=== PATIENT | female | born 1950 | race Caucasian/White ===

== ENCOUNTER 2020-07-16 10:02 | Day surgery (SDC) | payer MEDICARE, SELFPAY ==
[2020-06-06 08:45] VITALS: BMI 43.6
--- NOTE | 2020-06-07 07:52 | MHC.SHP ---
Pre-Procedural Eval Section A The patient is an INPATIENT: No The History & Physical has been completed within 30 days and I have reviewed it.: Yes Section B Chief Complaint: Cataract Right Eye Allergies: Allergies Allergy/AdvReac Type Severity Reaction Status Date / Time adhesive tape Allergy Blister Verified 06/06/20 08:52 Plan Diagnosis/Plan: Unchanged Patient has been examined and remains a candidate for the planned procedure
--- NOTE | 2020-06-08 09:19 | P.CONAN_ITS ---
HPI - Anesthesia Eval Consult details Narrative: 70yo F for cataract PCP cleared [facility] Past Medical History Medical History Depression Elevated cholesterol HTN (hypertension) Sleep apnea Surgical History Surgical History H/O colonoscopy History of Hx of arthroscopic knee surgery Hx of laparoscopy Social History Social History Smoking Status: Former smoker Smoked in Last 30 Days: No Smoking Quit Date: age 22 Use of substances other than those prescribed or required for medical reasons: No Advance Directives Information Provided: No Recently lost weight without trying: No Meds Allergies Allergy/AdvReac Type Severity Reaction Status Date / Time adhesive tape Allergy Blister Verified 06/06/20 08:52 Home Medications Medication Instructions Recorded Confirmed Type hydrochlorothiazide 1 tab PO DAILY 06/06/20 06/06/20 History paroxetine HCl 1 tab PO DAILY 06/06/20 06/06/20 History simvastatin 1 tab PO BEDTIME 06/06/20 06/06/20 History Exam Exam Date and Time: June 08, [id number] Height,Weight and Vital Signs: Height 5 ft 4 in Weight 115.212 kg Assessment and Plan Assessment Anesthesia Assessment: Chart Reviewed
--- NOTE | 2020-07-09 14:38 | HO.ANESPROP2 ---
Documented by User: Nadya Schumacher 07/09/20 14:39 HPI - Anesthesia Eval Consult details Narrative: 70yo F for Cataract Extraction No prev cataract [facility] Past Medical History Medical History Depression Elevated cholesterol HTN (hypertension) Sleep apnea Surgical History Surgical History H/O colonoscopy History of Hx of arthroscopic knee surgery Hx of laparoscopy Social History Social History Smoking Status: Former smoker Smoked in Last 30 Days: No Smoking Quit Date: Use of substances other than those prescribed or required for medical reasons: No Advance Directives Information Provided: No Recently lost weight without trying: No Meds Allergies Allergy/AdvReac Type Severity Reaction Status Date / Time adhesive tape Allergy Blister Verified 06/06/20 08:52 Home Medications Medication Instructions Recorded Confirmed Type hydrochlorothiazide 1 tab PO DAILY 06/06/20 06/06/20 History paroxetine HCl 1 tab PO DAILY 06/06/20 06/06/20 History simvastatin 1 tab PO BEDTIME 06/06/20 06/06/20 History Exam Exam Date and Time: July 09, 2020 1438 Height,Weight and Vital Signs: Height 5 ft 4 in Weight 115.212 kg Assessment and Plan Assessment Anesthesia Assessment: Chart Reviewed Documented by User: Beth Arroyo 07/16/20 10:41 [facility] Past Medical History Medical History Depression Elevated cholesterol HTN (hypertension) Sleep apnea Surgical History Surgical History H/O colonoscopy History of Hx of arthroscopic knee surgery Hx of laparoscopy Social History Social History Smoking Status: Former smoker Smoked in Last 30 Days: No Smoking Quit Date: Use of substances other than those prescribed or required for medical reasons: No Advance Directives Information Provided: No Recently lost weight without trying: No Meds Allergies Allergy/AdvReac Type Severity Reaction Status Date / Time adhesive tape Allergy Blister Verified 06/06/20 08:52 Home Medications Medication Instructions Recorded Confirmed Type hydrochlorothiazide 1 tab PO DAILY 06/06/20 06/06/20 History paroxetine HCl 1 tab PO DAILY 06/06/20 06/06/20 History simvastatin 1 tab PO BEDTIME 06/06/20 06/06/20 History Exam Airway Mallampati Class: III TM Dist: >3cm Neck ROM: Full Heart: RRR Lungs: CTA Assessment and Plan Assessment Anesthesia Assessment: Anesthesia Plan Discussed and Chart Reviewed Final Anesthetic Review NPO: Yes ASA Class: II Final Preanesthetic Review: Meds/Allgs Chart Reviewed, Consent Obtained/Reviewed and Anes Risks/Benef Reviewed Patient Risk: Low Procedure Risk: Low Anesthetic Plan Anesthetic Plan: MAC: Disposition: Standard PACU
[2020-07-09 15:00] VITALS: BMI 43.6
[2020-07-16 10:14] VITALS: BP 132/72; PULSE 65; RESP 20; TEMP 36.8; O2SAT 96
[2020-07-16] MEDS: Tetracaine HCl/PF 0.5% Oph Sol 4 ML DROPS 1 DROP EYE-RIGHT (10:35)
[2020-07-16] MEDS: Tropicamide 1 % Ophth Sol 3 ML BTL 1 DROP EYE-RIGHT ×3 (10:36→10:44)
[2020-07-16] MEDS: Lactated Ringers 500 ML 50 ML IV (10:38)
[2020-07-16 12:02] VITALS: BP 137/65; PULSE 55; RESP 18; TEMP 36.6; O2SAT 99
--- NOTE | 2020-07-16 12:02 | HO.PNOPHT ---
Ophthalmology Procedure Procedure Date of Service: 07/16/20 Ophthalmology Viscoelastic: Healrachael Duet Dual Pack Pro Ophthalmology Lenses: TECBRODY [id number] (14) Procedure Notes: PREOPERATIVE DIAGNOSIS: Decreased visual acuity right eye secondary to cataract POSTOPERATIVE DIAGNOSIS: Same PROCEDURE: Right cataract extraction with intraocular lens insertion SURGEON: Moreno Wheeler M.D. ANESTHESIA: Topical/MAC ESTIMATED BLOOD LOSS: None COMPLICATIONS: None After obtaining informed consent, the patient was brought to the operating room suite and placed in the supine position. After adequate sedation per anesthesia, topical drops of Tetracaine were given to the right eye. The eye was then prepped and draped in the usual sterile fashion. The operating room microscope was then positioned over the operative eye and a lid speculum placed. A paracentesis was created. Viscoelastic was then instilled into the anterior chamber. A three plane incision was then created temporally, utilizing a 2.85 mm keratome. Capsulotomy forceps were then utilized to create a circular tear capsulotomy. Hydrodissection and hydrodelineation were carried out until adequate mobilization of the nucleus occurred. Phacoemulsification was then utilized to remove the dense central nucleus followed by removal of the cortical material utilizing the automated aspiration irrigation unit. Viscoelastic was instilled into the posterior capsular bag followed by placement of a posterior chamber intraocular lens without difficulty. The residual Viscoelastic was then removed utilizing the automated IA machine. The wound was checked and found to be watertight. The patient tolerated the procedure well and the lid speculum was removed. Intracameral injection of Vigamox 0.1 mL followed by a subtenon injection of Kenalog-40 0.2 mL were administered. The patient will be seen in the a.m.
== END 2020-07-16 12:25 | disposition home or self-care (01) ==
PROVIDERS: PCP Internal Medicine; Visit Provider Ophthalmology
PROC: (CPT 66985; principal; 2020-07-16 12:50)
DX: H25.11 Age-related nuclear cataract, right eye (principal); I10 Essential (primary) hypertension
CPT/HCPCS: 66984; J2250; J3010; J3300; V2632

== ENCOUNTER 2021-01-21 14:50 | Outpatient (REF) | payer MEDICARE, SELFPAY ==
[2021-01-21 14:57] VITALS: BMI 44.6
== END 2021-01-21 14:51 | disposition home or self-care (01) ==
LOC: HO.MS 14:50
PROVIDERS: PCP Internal Medicine; Visit Provider Ophthalmology
PROC: (CPT 66821; principal; 2021-01-21 15:40)
DX: H26.491 Other secondary cataract, right eye (principal); Z96.1 Presence of intraocular lens; Z83.511 Family history of glaucoma; I10 Essential (primary) hypertension; Z87.891 Personal history of nicotine dependence; Z79.899 Other long term (current) drug therapy
CPT/HCPCS: 66821

== ENCOUNTER 2022-01-22 08:17 | Outpatient (REF) | payer MEDICARE, SELFPAY ==
--- NOTE | ~2022-01-22 | XR_ITS ---
EXAMINATION: PELVIS AND RIGHT HIP X-RAY CLINICAL INFORMATION: Pain COMPARISON: None TECHNIQUE: 2 views of the right hip and one view of the pelvis FINDINGS: No fracture or dislocation. There is joint space narrowing of the right hip joint. No erosive change or osteophyte formation is seen. The left hip joint is normal appearing. Bones of the pelvis are normal. Soft tissues are normal. XR/XR pelvis 1-2V IMPRESSION: Right hip joint space narrowing.
--- NOTE | ~2022-01-22 | XR_ITS ---
EXAMINATION: PELVIS AND RIGHT HIP X-RAY CLINICAL INFORMATION: Pain COMPARISON: None TECHNIQUE: 2 views of the right hip and one view of the pelvis FINDINGS: No fracture or dislocation. There is joint space narrowing of the right hip joint. No erosive change or osteophyte formation is seen. The left hip joint is normal appearing. Bones of the pelvis are normal. Soft tissues are normal. XR/XR hip RT min 2V IMPRESSION: Right hip joint space narrowing.
== END 2022-01-22 08:18 | disposition home or self-care (01) ==
LOC: HO.HOSX 08:17
PROVIDERS: Visit Provider Physician Assistant
DX: M16.11 Unilateral primary osteoarthritis, right hip (principal)
CPT/HCPCS: 72170; 73502; 99202

== ENCOUNTER → 2022-01-27 11:05 | Outpatient (BNVA) | payer MEDICARE, SELFPAY | PROVIDERS: PCP Internal Medicine; Visit Provider Orthopaedic Surgery | DX: M87.051 Idiopathic aseptic necrosis of right femur (principal) | CPT/HCPCS: 99202 ==

== ENCOUNTER 2022-04-29 06:04 | Inpatient (IN) | payer MEDICARE, SELFPAY ==
[2022-04-23 12:18] VITALS: BP 132/68; PULSE 67; RESP 20; O2SAT 98; BMI 43.9
--- NOTE | 2022-04-23 12:43 | HO.ANESPROP2 ---
Documented by User: Nadya Schumacher NP 04/24/22 13:57 HPI - Anesthesia Eval Consult details Narrative: 72yo F for Right Hip Total Replacement PCP cleared Cardiac cleared +snores per , no apnea bilateral hearing aids. [facility] Active Problems Active Problems: All Active Problems (Updated 04/23/22 @ 12:35 by Anyi Crystal RN) Primary osteoarthritis of right hip (Acute) Avascular necrosis of bone of right hip (Acute) Past Medical History Medical History (Updated 04/29/22 @ 14:58 by Wendi Ramirez MD) Arthritis COVID-19 vaccine series completed Depression Difficult intravenous access Elevated cholesterol History of COVID-19 HTN (hypertension) Sleep apnea Family History Family history of problems with anesthesia: No Surgical History Surgical History H/O colonoscopy History of History of right cataract surgery Hx of arthroscopic knee surgery Hx of laparoscopy History of Problems with Anesthesia: No Social History Social History Are you a primary patient care technician to a significant other at home: No Do you presently have visiting nurse or other home services: No Patient Tobacco Use Status: Former Tobacco user Quit Date: as teenager Tobacco use type: Cigarette Use of substances other than those prescribed or required for medical reasons: No Have you been hit, kicked, punched, or otherwise hurt by someone within the past year? If so, by whom?: No Are you DNR?: Yes Advance Directives Information Provided: Yes (to bring copies DOS) Advance Directives on File: No Recently lost weight without trying: No Eating poorly because of decreased appetite: No Nutrition Risks: No Nutritional Risk Poor oral hygiene: No (upper left side crown X2 / lower right side crown X1) Current occupational status: retired Narrative Narrative: No recent illness (COVID 02/2022) No CP/SOB. >4 mets Meds Allergies Allergy/AdvReac Type Severity Reaction Status Date / Time adhesive tape Allergy Intermediate Blister Verified 04/23/22 12:04 Home Medications Medication Instructions Recorded Confirmed Last Taken Type hydrochlorothiazide 25 mg tablet 25 mg PO QAM 06/06/20 04/23/22 Unknown History paroxetine HCl 10 mg tablet 10 mg PO QAM 06/06/20 04/23/22 04/29/22 History simvastatin 10 mg tablet 10 mg PO BEDTIME 06/06/20 04/23/22 Unknown History acetaminophen 650 mg 1,300 mg PO QPM 04/23/22 04/23/22 Unknown History tablet,extended release Exam Exam Date and Time: April 23, 2022 1243 Height,Weight and Vital Signs: Height 5 ft 4 in Weight 116.12 kg Last Vital Signs Pulse 67 04/23/22 12:18 Resp 20 04/23/22 12:18 BP 132/68 04/23/22 12:18 Pulse Ox 98 04/23/22 12:18 O2 Del Method 04/23/22 12:18 Pertinent Lab Results Pertinent Lab Results: CBC and BMP WNL at outside facility 03/2022 Narrative Narrative: EKG 03/2022 NSR with SA @ 65 Otherwise normal EKG Echo 01/2022 RV normal in size and function LV size is normal LV wall thickness is normal LVEF 60-65% No RWMA Gr 1, mild DD with impaired relax No evidence of aneurysm in the visualized portion of ascending aorta Airway Mallampati Class: II TM Dist: >3cm Neck ROM: Full Loose/Missing/Broken Teeth: No (crowned molars) Heart: RRR Lungs: CTAB Assessment and Plan Assessment Anesthesia Assessment: Anesthesia Plan Discussed and PAT Visit Final Anesthetic Review Family History of Problems with Anesthesia: No History of Problems with Anesthesia: No Documented by User: Max Garcia MD 04/29/22 18:18 [facility] Past Medical History Medical History (Updated 04/29/22 @ 14:58 by Wendi Ramirez MD) Arthritis COVID-19 vaccine series completed Depression Difficult intravenous access Elevated cholesterol History of COVID-19 HTN (hypertension) Sleep apnea Functional capacity: uses cane/walker Surgical History Surgical History H/O colonoscopy History of History of right cataract surgery Hx of arthroscopic knee surgery Hx of laparoscopy History of Problems with Anesthesia: Yes (PONV ) Social History Social History Are you a primary patient care technician to a significant other at home: No Do you presently have visiting nurse or other home services: No Patient Tobacco Use Status: Former Tobacco user Quit Date: as teenager Tobacco use type: Cigarette Use of substances other than those prescribed or required for medical reasons: No Have you been hit, kicked, punched, or otherwise hurt by someone within the past year? If so, by whom?: No Are you DNR?: Yes Advance Directives Information Provided: Yes (to bring copies DOS) Advance Directives on File: No Recently lost weight without trying: No Eating poorly because of decreased appetite: No Nutrition Risks: No Nutritional Risk Poor oral hygiene: No (upper left side crown X2 / lower right side crown X1) Current occupational status: retired Meds Allergies Allergy/AdvReac Type Severity Reaction Status Date / Time adhesive tape Allergy Intermediate Blister Verified 04/23/22 12:04 Home Medications Medication Instructions Recorded Confirmed Last Taken Type hydrochlorothiazide 25 mg tablet 25 mg PO QAM 06/06/20 04/23/22 Unknown History paroxetine HCl 10 mg tablet 10 mg PO QAM 06/06/20 04/23/22 04/29/22 History simvastatin 10 mg tablet 10 mg PO BEDTIME 06/06/20 04/23/22 Unknown History acetaminophen 650 mg 1,300 mg PO QPM 04/23/22 04/23/22 Unknown History tablet,extended release Exam Airway Loose/Missing/Broken Teeth: Yes (Crowns , fillings ) Assessment and Plan Assessment Anesthesia Assessment: Chart Reviewed Final Anesthetic Review History of Problems with Anesthesia: Yes (PONV ) NPO: Yes ASA Class: III Final Preanesthetic Review: Meds/Allgs Chart Reviewed, Consent Obtained/Reviewed and Anes Risks/Benef Reviewed Patient Risk: Intermediate Procedure Risk: Intermediate Anesthetic Plan Anesthetic Plan: GA Disposition: Inp. Admit - Standard Bed
[2022-04-23 16:57] LABS: MRSA Nasal PCR NEGATIVE (Negative); SA Nasal PCR NEGATIVE (Negative)
[2022-04-29] VITALS (15 sets, daily range): BP systolic 117–154; BP diastolic 57–73; PULSE 64–93; RESP 10–18; TEMP 36.2–37.2; O2SAT 93–97
--- NOTE | ~2022-04-29 | XR_ITS ---
EXAMINATION: XR PELVIS CLINICAL INFORMATION: Right hip replacement COMPARISON: Previous x-ray January 2022 TECHNIQUE: AP view of the pelvis. FINDINGS: There is a new right hip replacement satisfactory position. No fracture or dislocation is seen. There are postoperative changes of the soft tissues. XR/XR pelvis 1-2V IMPRESSION: Satisfactory appearance of right hip replacement.
[2022-04-29] MEDS: oxyCODONE HCl ER 10 MG TAB.ER.12H PO ×2 (06:28→21:03)
[2022-04-29 06:52] LABS: COVID-19 Test Negative (Negative)
[2022-04-29] MEDS: Lactated Ringers 1,000 ML 100 ML IVCONT ×3 (07:02→23:35)
--- NOTE | 2022-04-29 07:13 | PHA.MEDREC ---
Pharmacy Consult ? Medication Reconciliation Pharmacy has completed the medication reconciliation. Reviewed med rec done by nursing
--- NOTE | 2022-04-29 09:34 | PM.OP ---
Brief Operative Note Date of Service: 04/29/22 Pre-op diagnosis: Right hip OA Post-op diagnosis: same Procedure: Right ANAIS Implants: Maylin Trident2 52/lip liner Maylin Accolade #5 132/ -2.5 36 ceramic femoral head Surgeon: Mane Ramon MD Anesthesia: GETA Was an Director Of Philanthropy used for this Procedure?: Yes Director Of Philanthropy: Davey Dean Estimated blood loss (mL): 200 IV fluids (mL): 1,000 Pathology: other Condition: stable Disposition: PACU
--- NOTE | 2022-04-29 09:36 | MHC.SHP ---
Pre-Procedural Eval Section A Date of Service: 04/29/22 The patient is an INPATIENT: No Changes since office visit: Yes Patient answered all questions; No Cold of Flu in the past 2 weeks, No New Medical Problems and No Changes in Medication The History & Physical has been completed within 30 days and I have reviewed it.: Yes Section B Chief Complaint: RT ANAIS Allergies: Allergies Allergy/AdvReac Type Severity Reaction Status Date / Time adhesive tape Allergy Intermediate Blister Verified 04/23/22 12:04 Plan I have reviewed the history and physical and performed a pertinent physical examination on my patient. No changes have occurred unless specified.
--- NOTE | 2022-04-29 09:37 | P.OP_ITS ---
Operative Note Operative Note Date of Service: 04/29/22 Narrative: Date of Service: 04/29/22 Pre-op diagnosis: Right hip OA Post-op diagnosis: same Procedure: Right ANAIS Implants: Dexter Trident2 52/lip liner Maylin Accolade #5 132/ -2.5 36 ceramic femoral head Surgeon: Mane Ramon MD Anesthesia: GETA Was an Electronics Worker used for this Procedure?: Yes Electronics Worker: Davey Dean Estimated blood loss (mL): 200 IV fluids (mL): 1,000 Pathology: other Condition: stable Disposition: PACU Procedure in detail: Patient was brought into the operating room and placed in the left lateral decubitus position. All bony prominences were well padded and the limb was prepped and draped in standard sterile fashion. Time-out was called to identify proper site procedure proper surgeon IV antibiotics and 1 g of transaxemic acid were administered. I began by making a curvilinear incision over the posterolateral aspect of the greater trochanter. Dissection was taken down to the tensor fascia which was incised in line with the incision and a Charnley retractor was placed. Cautery was used to maintain hemostasis. A werewolf device was also used. The hip was internally rotated and the external rotators were identified. The vessels were cauterized and a full-thickness capsular/external rotator layer was developed starting just proximal to the piriformis. This layer was tagged and a dull Hohmann retractor was placed underneath the neck in the hip was dislocated. A neck cut was made 1.5 cm proximal to the lesser trochanter and the head and neck were removed and measured as a 47/48 on the back table. The head was eburnated. I started with a 44mm reamer and sequentially reamed up to a size 52 and impacted a 52mm cup at approximately 45 degrees of inclination and 25 degrees of version. I then placed a 20 deg posterior lipped liner and turned my attention to the femur. I identified the piriformis insertion and used this as a starting point for my vianey cutter. The medius tendon was protected with a Hibs retractor. I then used a Charnley awl to identify the canal and a curved curette to remove the lateral bone. I irrigated copiously. I then sequentially broached in the patient's natural version to a size #5 and placed my trial implants. Using a 132deg/ +0 trail I took the hip through range of motion. I was very satisfied with the stability and length. Therefore I removed all instrumentation and copiously irrigated. I placed my final femoral implant and again took the hip through range of motion and was satisfied with the stability and length using a -2.5mm head. My final femoral head was impacted in place. THe head was reduced. I then irrigated for 3 minutes with iodine and placed 1 g of local tranaxemic acid. I then performed a capsular closure with 2.0 fiberwire, Dmitry's fascia with 0 Vicryl, subcuticular with 2-0 Vicryl and the skin with deisy. Patient was placed into a sterile dressing. Patient was extubated brought to the recovery room in stable condition. There were no know complications.
[2022-04-29] MEDS: HYDROmorphone HCl 0.5 MG/0.5 ML SYRINGE 0.25 MG IVPUSH ×2 (10:07→14:46)
--- NOTE | 2022-04-29 14:47 | P.CONHOSP_ITS ---
History of Present Illness Data of Consult Service Date: 04/29/22 Primary Care Provider: Nonstaff Physician HPI Reason for consult: Chronic medical conditions This is a 72-year-old female with a pertinent history of primary osteoarthritis of hip, essential hypertension, mood disorder, hyperlipidemia who underwent right ANAIS for avascular necrosis of right hip on 04/29/[address] Mane Ramon. [facility] consulted for evaluation and management of chronic medical conditions. Patient seen postop and is on 2 L of oxygen via nasal cannula. She complains of incision site discomfort but denies any new complaints. Also has nausea but no vomiting. Patient states she is compliant with her prescription medications for chronic medical conditions at home. Does not use home supplemental oxygen. Does not use any assistive devices for breathing Review of Systems Review of Systems: All 13 review of systems are negative except as noted in HPI [facility] Medical History (Updated 04/29/22 @ 14:58 by Wendi Ramirez MD) Arthritis COVID-19 vaccine series completed Depression Difficult intravenous access Elevated cholesterol History of COVID-19 HTN (hypertension) Sleep apnea Functional capacity: uses cane/walker Surgical History H/O colonoscopy History of History of right cataract surgery Hx of arthroscopic knee surgery Hx of laparoscopy Social History Are you a primary care transport nurse to a significant other at home: No Do you presently have visiting nurse or other home services: No Patient Tobacco Use Status: Former Tobacco user Quit Date: as teenager Tobacco use type: Cigarette Use of substances other than those prescribed or required for medical reasons: No Have you been hit, kicked, punched, or otherwise hurt by someone within the past year? If so, by whom?: No Are you DNR?: Yes Advance Directives Information Provided: Yes (to bring copies DOS) Advance Directives on File: No Recently lost weight without trying: No Eating poorly because of decreased appetite: No Nutrition Risks: No Nutritional Risk Poor oral hygiene: No (upper left side crown X2 / lower right side crown X1) Current occupational status: retired Meds Allergies Allergy/AdvReac Type Severity Reaction Status Date / Time adhesive tape Allergy Intermediate Blister Verified 04/23/22 12:04 Active Medications: Current Medications Acetaminophen (Acetaminophen 325 Mg Tablet) 650 mg PO Q6H PRN PRN Reason: Pain, Mild (Pain Scale 1-3) Celecoxib (Celecoxib 200 Mg Capsule) 200 mg PO BID [facility] Docusate Sodium (Docusate Sodium 100 Mg Capsule) 100 mg PO BID [facility] Enoxaparin Sodium (Enoxaparin Sodium 40 Mg/0.4 Ml Syringe) 40 mg SUBCUT Q24H [facility] Hydromorphone HCl (Hydromorphone Hcl 0.5 Mg/0.5 Ml Syringe) 0.25 mg IVPUSH Q4H PRN; Protocol PRN Reason: Pain, Severe (Pain Scale 7-10) Lactated Ringer's (Lr) 1,000 mls @ 100 mls/hr IVCONT .Q10H [facility] Stop: 04/30/22 13:55 Non-Formulary Medication (Simvastatin) 10 mg PO DAILY [facility] Ondansetron HCl (Ondansetron Hcl 4 Mg/2 Ml Vial) 4 mg IVPUSH Q8H PRN PRN Reason: Nausea and Vomiting Oxycodone HCl (Oxycodone Hcl Immed Release 5 Mg Tablet) 10 mg PO Q4H PRN PRN Reason: Pain, Moderate (Pain Scale 4-6 Oxycodone HCl (Oxycodone Hcl Er 10 Mg Tab.Er.12h) 10 mg PO BID [facility] Paroxetine HCl (Paroxetine Hcl 10 Mg Tablet) 10 mg PO DAILY [facility] Sodium Chloride (0.9 % Sodium Chloride Flush 3 Ml Syringe) 3 ml IVFLUSH QSHIFT [facility] Home Medications Medication Instructions Recorded Confirmed Last Taken Type hydrochlorothiazide 25 mg tablet 25 mg PO QAM 06/06/20 04/23/22 Unknown History paroxetine HCl 10 mg tablet 10 mg PO QAM 06/06/20 04/23/22 04/29/22 History simvastatin 10 mg tablet 10 mg PO BEDTIME 06/06/20 04/23/22 Unknown History acetaminophen 650 mg 1,300 mg PO QPM 04/23/22 04/23/22 Unknown History tablet,extended release Physical Exam Vital Signs and Narrative: Vital Signs: Last Vital Signs Temp 98.8 F 04/29/22 09:56 Pulse 75 04/29/22 12:37 Resp 10 L 04/29/22 12:37 BP 141/69 H 04/29/22 12:37 Pulse Ox 97 04/29/22 12:37 O2 Del Method 04/29/22 12:37 O2 Flow Rate 3 04/29/22 12:37 BMI result Body Mass Index 43.9 Elderly female lying in bed in no distress Decreased breath sounds at bases, on 2 L supplemental oxygen, no wheezing or crackles appreciated S1-S2 heard, regular rhythm Abdomen soft, nontender, no guarding, no rigidity Right hip with dressing in place; no serosanguineous discharge seen Patient is awake, alert, oriented to self, place, time and person Psych: Normal mood Results Labs Labs: Laboratory Results - last 24 hr 04/29/22 06:04 COVID-19 ([facility]) Negative COVID-19 Clin Com See Note Imaging Radiologist's Impressions: Impressions Pelvis X-Ray 04/29/22 10:16 IMPRESSION: Satisfactory appearance of right hip replacement. Assessment and Plan (1) Avascular necrosis of bone of right hip: Status: Acute (2) Depression: Status: Acute (3) HTN (hypertension): Status: Acute (4) Hyperlipidemia: Status: Acute Plan #. Avascular necrosis of right hip s/p ANAIS -management as per Orthopedic surgery including pain control. #. Postop respiratory insufficiency in setting of above -monitor and wean oxygen as tolerated, maintain oxygen saturation greater than 92%. Initiating incentive spirometry. May benefit from outpatient sleep study and home CPAP. #. Essential hypertension -holding hydrochlorothiazide for now. Monitor and resume as appropriate. Obtaining labs in a.m. #. Major depressive disorder -continue paroxetine #. Mixed hyperlipidemia -continue simvastatin at bedtime Code status: Full code DVT prophylaxis: Lovenox 40 mg daily Diet: Regular diet
[2022-04-29] MEDS: ondansetron HCL 4 MG/2 ML VIAL IVPUSH (14:48)
[2022-04-29] MEDS: ceFAZolin Sodium/Dextrose,Iso 2 GM/50 ML PIGGYBACK IV (14:48)
[2022-04-29] MEDS: oxyCODONE HCl Immed Release 5 MG TABLET 10 MG PO (18:35)
[2022-04-29] MEDS: Acetaminophen 325 MG TABLET 650 MG PO (18:40)
[2022-04-29] MEDS: Docusate Sodium 100 MG CAPSULE PO (21:02)
[2022-04-29] MEDS: Celecoxib 200 MG CAPSULE PO (21:02)
[2022-04-29] MEDS: 0.9 % Sodium Chloride Flush 3 ML SYRINGE IVFLUSH (21:06)
[2022-04-30] VITALS: BP 132/60; PULSE 76; RESP 17; TEMP 36.1; O2SAT 95
[2022-04-30 05:53] LABS: MANUAL DIFF FLAG NO
[2022-04-30 06:01] LABS: Basophils Percent Auto 0.3 % (0-2); Hematocrit 36.6 % (37.0-47.0); Hemoglobin 11.6 g/dl (12.0-16.0); Imm Gran Abs Auto 0.07 X10*3/uL (0.00-0.03); Imm Gran Pct Auto 0.6 % (0.0-0.4); Lymphocytes Absolute Auto 1.4 X10*3/uL (1.2-4.9); Lymphocytes Percent Auto 12.7 % (20-40); Mean Corpuscular HGB Conc 31.7 g/dl (31.0-35.0); Mean Corpuscular Hemoglobin 28.2 pg (27.0-33.0); Mean Corpuscular Volume 89.1 fL (80.0-98.0); Mean Platelet Volume 10.6 fL (9.4-12.3); Monocytes Absolute Auto 1.1 X10*3/uL (0.1-1.2); Monocytes Percent Auto 10.5 % (2-11); Neutrophils Absolute Auto 8.2 x10*3/uL (2.0-8.3); Neutrophils Percent Auto 75.9 % (45-73); Platelet Count 236 X10*3/uL (160-400); Red Blood Count 4.11 X10*6/uL (4.20-5.50); Red Cell Distribution Width 13.4 % (11.0-16.0); White Blood Count 10.8 X10*3/uL (4.8-10.8)
[2022-04-30 06:17] LABS: Anion Gap 14 (12-20); Blood Urea Nitrogen 12 mg/dL (9-16); Calcium 8.8 mg/dL (8.4-10.2); Carbon Dioxide 27 mmol/L (22-29); Chloride 102 mmol/L (96-108); Creatinine Clr Calc Pharmacy 92.2; Estimated Glomerular Filt Rate > 60; Glucose Fasting 105 mg/dL (60-99); Potassium 3.4 mmol/L (3.3-5.1); Sodium 140 mmol/L (135-145)
[2022-04-30 07:22] VITALS: BP 122/60; PULSE 83; RESP 18; TEMP 37.2; O2SAT 92
[2022-04-30] MEDS: Atorvastatin Calcium 10 MG TABLET PO (07:50)
[2022-04-30] MEDS: oxyCODONE HCl ER 10 MG TAB.ER.12H PO (07:51)
[2022-04-30] MEDS: HYDROmorphone HCl 0.5 MG/0.5 ML SYRINGE 0.25 MG IVPUSH (07:52)
[2022-04-30] MEDS: Docusate Sodium 100 MG CAPSULE PO (07:53)
[2022-04-30] MEDS: Enoxaparin Sodium 40 MG/0.4 ML SYRINGE SUBCUT (07:54)
[2022-04-30] MEDS: Celecoxib 200 MG CAPSULE PO (07:54)
[2022-04-30] MEDS: PARoxetine HCL 10 MG TABLET PO (07:54)
[2022-04-30 08:25] VITALS: BP 122/60; PULSE 83; O2SAT 92
--- NOTE | 2022-04-30 08:49 | MHC.CM.PN ---
PATIENT LIVES WITH SPOUSE/HCP COPY BROUGHT IN AND UPLOADED TO [facility]. SHE HAS A WALKER, GRABBER, AND A HIGH TOILET BUT DOES NEED THE RIDER FOR SUPPORT. REFERRAL TO [facility] FOR HOME [facility].T. HER SP[facility]SE WILL TRANSPORT HOME. GUSTAVO DOBBINS X 4. IMM 04/30 IN CHART
--- NOTE | 2022-04-30 09:04 | P.PNIM_ITS ---
Subjective Subjective Date of Service: 04/30/22 Interval History: No significant nursing events overnight. Patient seen sitting up in chair this a.m. and without distress. Maintaining normal oxygen saturation on room air Review of Systems All 13 review of systems are negative except as noted in HPI Physical Exam Vital Signs: Vital Signs: Last Vital Signs Temp 98.9 F 04/30/22 07:22 Pulse 83 04/30/22 08:25 Resp 18 04/30/22 07:22 BP 122/60 04/30/22 08:25 Pulse Ox 92 04/30/22 08:25 O2 Del Method 04/30/22 07:22 O2 Flow Rate 2 04/30/22 07:22 BMI result Body Mass Index 43.9 Elderly female lyi ng in bed in no di stress Decreased b reath sounds at ba ses, no wheezing o r crackles appreci ated S1-S2 heard, regular rhythm Abd omen soft, nontend er, no guarding, n o rigidity Right h ip with dressing i n place; no serosa nguineous discharg e seen Patient is awake, alert, orie nted to self, plac e, time and person Psych: Normal moo d Objective Data Active Medications Acetaminophen (Acetaminophen 325 Mg Tablet) 650 mg PO Q6H PRN PRN Reason: Pain, Mild (Pain Scale 1-3) Last Admin: 04/29/22 18:40 Dose: 650 mg Documented By: LASHANDA Atorvastatin Calcium (Atorvastatin Calcium 10 Mg Tablet) 10 mg PO DAILY [facility] Last Admin: 04/30/22 07:50 Dose: 10 mg Documented By: MARIFER Celecoxib (Celecoxib 200 Mg Capsule) 200 mg PO BID [facility] Last Admin: 04/30/22 07:54 Dose: 200 mg Documented By: MARIFER Docusate Sodium (Docusate Sodium 100 Mg Capsule) 100 mg PO BID [facility] Last Admin: 04/30/22 07:53 Dose: 100 mg Documented By: MARIFER Enoxaparin Sodium (Enoxaparin Sodium 40 Mg/0.4 Ml Syringe) 40 mg SUBCUT Q24H [facility] Last Admin: 04/30/22 07:54 Dose: 40 mg Documented By: MARIFER Hydromorphone HCl (Hydromorphone Hcl 0.5 Mg/0.5 Ml Syringe) 0.25 mg IVPUSH Q4H PRN; Protocol PRN Reason: Pain, Severe (Pain Scale 7-10) Last Admin: 04/30/22 07:52 Dose: 0.25 mg Documented By: MARIFER Lactated Ringer's (Lr) 1,000 mls @ 100 mls/hr IVCONT .Q10H [facility] Stop: 04/30/22 13:55 Last Admin: 04/29/22 23:35 Dose: 100 mls/hr Documented By: REGAN Ondansetron HCl (Ondansetron Hcl 4 Mg/2 Ml Vial) 4 mg IVPUSH Q8H PRN PRN Reason: Nausea and Vomiting Last Admin: 04/29/22 14:48 Dose: 4 mg Documented By: RADHA Oxycodone HCl (Oxycodone Hcl Immed Release 5 Mg Tablet) 10 mg PO Q4H PRN PRN Reason: Pain, Moderate (Pain Scale 4-6 Last Admin: 04/29/22 18:35 Dose: 10 mg Documented By: LASHANDA Oxycodone HCl (Oxycodone Hcl Er 10 Mg Tab.Er.12h) 10 mg PO BID [facility] Last Admin: 04/30/22 07:51 Dose: 10 mg Documented By: MARIFER Paroxetine HCl (Paroxetine Hcl 10 Mg Tablet) 10 mg PO DAILY [facility] Last Admin: 04/30/22 07:54 Dose: 10 mg Documented By: MARIFER Sodium Chloride (0.9 % Sodium Chloride Flush 3 Ml Syringe) 3 ml IVFLUSH QSHIFT [facility] Last Admin: 04/30/22 07:50 Dose: Not Given Documented By: MARIFER Non-Admin Reason: IV Running Labs CBC & Chem 7: 04/30/22 05:23 04/30/22 05:23 Labs: Laboratory Results - last 24 hr 04/30/22 04/30/22 05:23 05:23 MCV 89.1 MCH 28.2 MCHC 31.7 RDW 13.4 Plt Count 236 MPV 10.6 Immature Gran % (Auto) 0.6 H Neut % (Auto) 75.9 H Lymph % (Auto) 12.7 L [place] % (Auto) 10.5 Eos % (Auto) 0.0 Baso % (Auto) 0.3 Lymph # (Auto) 1.4 [place] # (Auto) 1.1 Eos # (Auto) 0.0 Baso # (Auto) 0.0 Abs Immat Gran (auto) 0.07 H Absolute Neuts (auto) 8.2 Absolute Nucleated RBC 0.000 Nucleated RBC % (auto) 0.0 Anion Gap 14 Estim Creat Clear Calc 92.2 Estimated GFR > 60 Fasting Glucose 105 H Calcium 8.8 Assessment and Plan (1) Avascular necrosis of bone of right hip: Status: Acute (2) HTN (hypertension): Status: Acute (3) Depression: Status: Acute (4) Hyperlipidemia: Status: Acute Plan #. Avascular necrosis of right hip s/p ANAIS -management as per Orthopedic surgery including pain control. #. Postop respiratory insufficiency in setting of above -Resolved. Initiated incentive spirometry. May benefit from outpatient sleep study and home CPAP. #. Essential hypertension -holding hydrochlorothiazide for now. Monitor and resume as appropriate. #. Major depressive disorder -continue paroxetine #. Mixed hyperlipidemia -continue simvastatin at bedtime Code status: Full code DVT prophylaxis: Lovenox 40 mg daily Diet: Regular diet Quality Stroke Does the patient have a stroke diagnosis?: No VTE Prior VTE?: No VTE Risk Level:: Medical - moderate - high VTE Device Contraindication: Treatment Not Indicated VTE Drug Contraindication: N/A - Med Ordered
--- NOTE | 2022-04-30 09:10 | PM.PNORT ---
Subjective Subjective Date of Service: 04/30/22 Interval history: POD1 s/p RTHA. No overnight events. Pain is managed. Resting in bed comfortably. She attempted to work with physical therapy yesterday but was nauseas and therefore treatment was post poned. No additional complaints. Physical Exam Vital Signs: Vital Signs: Last Vital Signs Temp 98.9 F 04/30/22 07:22 Pulse 83 04/30/22 08:25 Resp 18 04/30/22 07:22 BP 122/60 04/30/22 08:25 Pulse Ox 92 04/30/22 08:25 O2 Del Method 04/30/22 07:22 O2 Flow Rate 2 04/30/22 07:22 BMI result Body Mass Index 43.9 Const: General: cooperative, healthy appearing and no acute distress Resp: Effort & Inspection: normal respiratory effort and able to speak in complete sentences Cardio: Rate: regular rate Peripheral pulses: Peripheral pulses 2+ throughout GI: Palpation (GI): Soft to palpation Skin: Lesions: no lesions Rashes: no rashes Extrem: Other: Right hip Aquacel is clean, dry, and intact. NVI. Procedures Date of Service Date of Service: 04/30/22 Progress Note: A&P Assessment and plan (1) Status post total hip replacement, right: Status: Acute Assessment and Plan: Continue pain mgmnt Begin Lovenox for dvt ppx PT for RTHA Dispo planning-Pending PT eval, pain mgmnt Time Spent With Patient Time: Total time spent is greater than 50% in coordination of care (as documented) at patient's floor/unit and/or counseling patient: Quality Stroke Does the patient have a stroke diagnosis?: No VTE Prior VTE?: No VTE Risk Level:: Medical - moderate - high VTE Device Contraindication: Treatment Not Indicated VTE Drug Contraindication: N/A - Med Ordered
[2022-04-30 11:37] VITALS: BP 108/52; PULSE 69; RESP 18; TEMP 36.7; O2SAT 99
--- NOTE | 2022-04-30 11:44 | HO.POSTANES ---
Post Anesthesia Evaluation Post Anesthesia Evaluation Vital Signs: Vital Signs Temp Pulse Resp BP Pulse Ox O2 Del Method O2 Flow Rate 04/30/22 11:37 98.0 F 69 18 108/52 L 99 Room Air 04/30/22 08:25 83 122/60 92 04/30/22 07:22 98.9 F 83 18 122/60 92 Nasal Cannula 2 04/30/22 04:00 99.2 F 78 17 126/58 L 93 Nasal Cannula 2 04/30/22 00:00 96.9 F 76 17 132/60 95 Nasal Cannula 2 Anesthesia: General Mental Status: Awake Pain Control: Satisfactory Nausea/Vomiting: None Hydration: Adequate Anesthesia-Related Issues: No Anes. Related Issues
--- NOTE | 2022-04-30 11:59 | P.CDIC_ITS ---
CDI Concurrent Query Documentation Clarification: PHYSICIAN'S DOCUMENTATION REQUEST Date of Query: 04/30/22 1159 Patient Name: Vida Andre Admit Date: 04/29/22 Dear Doctor, A review of the medical record indicates additional documentation may be needed. Please review below and update the documentation accordingly. Clinical Indicators: Height: [] 5'4 Weight: [] 116.12 kg BMI: [] 43.9 Other Clinical Notes Supporting Significance of the BMI: Risk Factors/Clinical Indicators/Treatments If possible, please provide an associated diagnosis related to the abnormal BMI, such as: For a BMI >= 40: * Overweight * Obesity * Due to excess calories * Drug induced * Due to other cause * Severe or Morbid Obesity * With alveolar hypoventilation * Without alveolar hypoventilation Or: * BMI is not significant * Other (please specify) * Unable to determine Use of terms such as suspected, likely, concern for, or probable (associated with a specific diagnosis that is being evaluated, monitored, or treated as if it exists) are acceptable and can be coded in the inpatient setting, when documented at the time of discharge. Thank you, Iris Smith RN Extension: [phone] Please use your independent medical judgment in providing your response. THIS QUERY IS PART OF THE PERMANENT MEDICAL RECORD
[2022-04-30] MEDS: ondansetron HCL 4 MG/2 ML VIAL IVPUSH (12:01)
[2022-04-30 13:26] VITALS: BP 108/52; PULSE 69; O2SAT 99
[2022-04-30] MEDS: oxyCODONE HCl Immed Release 5 MG TABLET 10 MG PO (14:14)
[2022-04-30] MEDS: Acetaminophen 325 MG TABLET 650 MG PO (14:14)
[2022-04-30 16:00] VITALS: BP 127/57; PULSE 74; RESP 19; TEMP 36.8; O2SAT 95
--- NOTE | 2022-04-30 16:07 | P.DS_ITS ---
DS: Providers Provider Date of Service: 04/30/22 Date of admission: 04/29/22 06:04 Primary care physician: Nonstaff Physician Consults: 04/29/22 13:56 Consult to Hospitalist Routine Consulting Provider: Hospitalist Reason For Exam: HTN DS: Diagnosis Discharge Diagnosis (1) Status post total hip replacement, right: Status: Acute DS: Summary Hospital Course Hospital Course: The patient underwent a successfulleft total hip arthroplasty, was transferred to PACU and then to the floor to recover. During their stay, their vitals were stable, afebrile at 98.0. Labs were unremarkable, H/H 11.6/36.6. POD 1 she was started on Lovenox for DVT ppx, she also received PT/OT services twice a day. Prior to discharge, dressing was clean dry and intact and the plan was to be discharged home with PT services. Time Spent with Patient Time attestation: Total time spent providing and/or coordinating discharge services: Discharge coordination time: Less than 30 minutes Quality: Safe Use of Opioids Does Pt have an Active Cancer Diagnosis on the Problem List?: No Quality: Stroke Does the patient have a stroke diagnosis?: No Physical Exam Vital Signs: Vital Signs: Last Vital Signs Temp 98.0 F 04/30/22 11:37 Pulse 69 04/30/22 13:26 Resp 18 04/30/22 11:37 BP 108/52 L 04/30/22 13:26 Pulse Ox 99 04/30/22 13:26 O2 Del Method 04/30/22 11:37 O2 Flow Rate 2 04/30/22 07:22 BMI result Body Mass Index 43.9 Const: General: cooperative, healthy appearing and no acute distress Resp: Effort & Inspection: normal respiratory effort and able to speak in complete sentences Cardio: Rate: regular rate Peripheral pulses: Peripheral pulses 2+ throughout GI: Palpation (GI): Soft to palpation Skin: General skin exam: no rashes or lesions noted Extrem: Other: incision clean dry and intact. [place] intact. No erythema or effusion. Calf supple nontender. Neurovascularly intact. DS: Data Data Completed and Pending Pending studies at discharge: Pending at discharge 04/29/22 09:15 Surgical [PTH] Routine Labs on day of discharge: Laboratory Results - last 24 hr 04/30/22 04/30/22 05:23 05:23 WBC 10.8 RBC 4.11 L Hgb 11.6 L Hct 36.6 L MCV 89.1 MCH 28.2 MCHC 31.7 RDW 13.4 Plt Count 236 MPV 10.6 Immature Gran % (Auto) 0.6 H Neut % (Auto) 75.9 H Lymph % (Auto) 12.7 L [place] % (Auto) 10.5 Eos % (Auto) 0.0 Baso % (Auto) 0.3 Lymph # (Auto) 1.4 [place] # (Auto) 1.1 Eos # (Auto) 0.0 Baso # (Auto) 0.0 Abs Immat Gran (auto) 0.07 H Absolute Neuts (auto) 8.2 Absolute Nucleated RBC 0.000 Nucleated RBC % (auto) 0.0 Sodium 140 Potassium 3.4 Chloride 102 Carbon Dioxide 27 Anion Gap 14 BUN 12 Creatinine 0.71 Estim Creat Clear Calc 92.2 Estimated GFR > 60 Fasting Glucose 105 H Calcium 8.8 Discharge Plan Discharge Patient Disposition: Home Health Service Discharge Diagnosis: rt denise Referrals: Dorota Almanzar PA-C [Physician Data Security Administrator] - 2 Weeks (05/15/22 1:45 [facility] Dorota Almanzar PA-C) Discharge Medications: New celecoxib 200 mg Capsule 200 mg PO BID 14 Days Qty: 28 0RF acetaminophen 325 mg Tablet 650 mg PO Q6H PRN (Reason: Pain, Mild (Pain Scale 1-3)) 30 Days Qty: 240 0RF oxycodone 5 mg Tablet 5 mg PO Q4H PRN (Reason: Pain, Moderate (Pain Scale 4-6) 7 Days Qty: 42 0RF Rx Instructions: Partial Fill upon patient request. enoxaparin 40 mg/0.4 mL Syringe 40 mg subcut Q24H 42 Days Qty: 16.8 0RF Continued paroxetine HCl 10 mg tablet 10 mg PO QAM simvastatin 10 mg tablet 10 mg PO BEDTIME hydrochlorothiazide 25 mg tablet 25 mg PO QAM Discontinued acetaminophen [Tylenol Arthritis] 650 mg Tablet Extended Release 1,300 mg PO QPM Discharge Orders: Discharge Order (Routine); Ordered 04/30/22 Ordered By: Davey Dean Diet: Regular diet Activity on Discharge: Use cane or walker Stand Alone Forms: Patient Portal Discharge page Care Plan Goals: Restore function of joint Health Concerns: none Plan of Treatment: Physical Therapy Pain management DVT prophylaxis Assessment: * Physical Therapy for Total hip arthroplasty: wbat, posterior precautions, gait training, ROM, strength * Limit stair climbing * No showering, no tub bath-keep dressing clean, dry and intact * No driving x6 weeks * Continue Lovenox once a day x 6 weeks * Follow up with [facility] in 2 weeks: 05/15/22 @ 1:45pm * --you will also have your first out patient PT evhollis on the day of your post op appt-so please plan on being in the office that day for an extended period of time.
--- NOTE | 2022-04-30 16:11 | P.F2F_ITS ---
Service Date Service Date: 04/30/22 Encounter Date of encounter: 04/30/22 Reasons for Services Signs and symptoms assessed: left hip pain, weakness, difficulty with balance. Reason for physical therapy: home safety and mobility, therapeutic exercises, restore joint function, gait/transfer training, ADL training and energy conservation Reason for occupational therapy: home safety and mobility, therapeutic exercises, restore joint function, gait/transfer training, ADL training and energy conservation MD Overseeing Care: Mane Ramon Homebound: Leaving the home is medically contraindicated at this time without the asist of a device and/or another person due th the listed conditions above and below. Reason homebound: unsteady gait / fall risk, leg weakness, pain with ambulation, pain with transfers, poor balance / fall risk and unable to drive Homebound supporting statement: Pt. is considered home bound due to recent surgery. Unable to drive, poor balance, poor gait mechanics. Certification: Based on the above findings, I certify that this patient is confined to the home and needs intermittent [facility] care, physical therapy and/or speech therapy, or continues to need occupational therapy. The patient is under my care, and I have initiated the establishment of the plan of care. The patient will be followed by a physician who will periodically review the plan of care.
== END 2022-04-30 17:52 | disposition home health service (06) | DRG 470 ==
LOC: HO.SSSA 06:13 → HO.S3 12:38
PROVIDERS: Physician Assistant; Admitting Provider Orthopaedic Surgery; PCP Internal Medicine; Visit Provider Orthopaedic Surgery
PROC: 0SR903A Replacement of Right Hip Joint with Ceramic Synthetic Substitute, Uncemented, Open Approach (ICD-10-PCS; CPT 27130; principal; 2022-04-29 07:30)
DX: M87.051 Idiopathic aseptic necrosis of right femur (principal); E78.00 Pure hypercholesterolemia, unspecified; I10 Essential (primary) hypertension; Z20.822 Contact with and (suspected) exposure to COVID-19; E78.2 Mixed hyperlipidemia; Z97.4 Presence of external hearing-aid; F32.9 Major depressive disorder, single episode, unspecified; Z86.16 Personal history of COVID-19; Z87.891 Personal history of nicotine dependence; Z79.899 Other long term (current) drug therapy
CPT/HCPCS: 36415; 72170; 80048; 85025; 86850; 86900; 86901; 87635; 87640; 87641; 88305; 88311; 97110; 97116; 97162; 97166; C1776; J0131; J0690; J1170; J1650; J2250; J2405; J2795; J3010

== ENCOUNTER 2022-06-11 13:00 | Outpatient (RCR) | payer MEDICARE, SELFPAY ==
--- NOTE | 2022-05-15 14:56 | MHC.PT.EP ---
[facility] [place] Office [place] Office [place] Office [address] Grady Delgado [address] [phone] F: [phone] F: [phone] F: [phone] F: [phone] Physical Therapy Plan of Care Date of Evaluation: Date of Surgery: 04/29/22 Diagnosis: S/P Rt ANAIS Assessment: 72 YO FEMALE REF TO PT S/P RIGHT ANAIS , POSTERIOR ANAIS PRECAUTIONS ON 04/29/22. SHE RESIDES W HER SPOUSE IN A 1 LEVEL HOME (LAUNDRY ON MAIN LEVEL)AND IS CURRENTLY AMB W A CANE. OBJECTIVE FINDINGS: PO ROM DEFICITS RIGHT HIP, TIGHT HIP FLEXORS/ CALF MM, (+) STRENGTH DEFICITS, AND VERY MILD RIGHT PROX LE PAIN. Pt IS VERY SAFETY AWARE WITH RESTRICTIONS/ PRECAUTIONS. 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 SHE IS MOTIVATED FOR PT TO ASSIST HER IN REGAINING FUNCTIONAL INDEPENDENCE. Pt WOULD BENEFIT FROM PT AT THIS TIME TO GUIDE HER IN HIS POST-OP COURSE, DEV A PROGR HEP, ADDRESS PAIN MGMT, AND OBTAINING MAXIMAL LEVEL OF FUNCTIONAL INDEPENDENCE. 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 Manual therapy to restore motion and function. Therapeutic exercise to improve strength and flexibility. Neuromuscular re-education for posture and balance. Therapeutic activities to return to functional activities of daily living. Electronically signed by: Jailene Rosario PT Please sign and return to therapist. Thank you for your referral.
--- NOTE | 2022-07-02 11:22 | MHC.PT.DC ---
[facility] [place] Office [place] Office [place] Office [address] Grady Delgado [address] [phone] F: [phone] F: [phone] F: [phone] F: [phone] Physical Therapy Discharge Report Diagnosis: S/P Rt ANAIS Date of Surgery: 04/29/22 Date of Evaluation: 05/15/22 Date of Discharge: 07/02/22 Treatments to Date: 5 Cancellations to Date: No Shows to Date: Discharge Status: Achieved Goals Improved Function Independent with HEP Patient Elected to Stop Recommend MD Follow-up Discharge Summary: PER NOTE ON 06/11/22 HAS MET PT GOALS. TO SEE ORTHO TOMORROW. DC PT IF ORTHO OK WITH IT. LEFI=62/80 Electronically signed by: BREANNA PUGA PT Please sign and return to therapist. Thank you for your referral.
== END 2022-07-02 11:24 | disposition home or self-care (01) ==
LOC: HO.PTWFD 13:00
PROVIDERS: Visit Provider Physician Assistant
DX: Z96.641 Presence of right artificial hip joint (principal)
CPT/HCPCS: 97110; 97116; 97162; 97530

== ENCOUNTER 2022-06-26 11:26 | Outpatient (REF) | payer MEDICARE, SELFPAY ==
--- NOTE | ~2022-06-26 | XR_ITS ---
EXAMINATION: XR PELVIS CLINICAL INFORMATION: Right knee pain COMPARISON: 01/22/2022, 04/29/2022. TECHNIQUE: AP view of the pelvis. FINDINGS: Patient is status post recent total right hip replacement with well positioned prosthesis. Soft tissues unremarkable. XR/XR pelvis 1-2V IMPRESSION: Well-positioned right hip prosthesis
== END 2022-06-26 11:27 | disposition home or self-care (01) ==
LOC: HO.HOSX 11:26
PROVIDERS: Visit Provider Orthopaedic Surgery
DX: M25.551 Pain in right hip (principal); M25.552 Pain in left hip
CPT/HCPCS: 72170

== ENCOUNTER 2022-07-24 08:58 | Outpatient (REF) | payer MEDICARE, SELFPAY ==
--- NOTE | ~2022-07-24 | XR_ITS ---
EXAMINATION: XR PELVIS XR HIP, RIGHT CLINICAL INFORMATION: Pain COMPARISON: 06/26/2022 TECHNIQUE: Frontal view of the pelvis with crosstable lateral view of the right hip. FINDINGS: There is a total right hip arthroplasty. The femoral head component articulates appropriately with the acetabular component. No periprosthetic lucency or fracture. The left hip is well aligned with mild narrowing of the joint space. The pelvic rim is intact. Phleboliths in the pelvis. Normal bowel gas pattern. XR/XR pelvis 1-2V IMPRESSION: Total right hip arthroplasty in typical positioning and alignment. Mild narrowing of the left hip joint space.
--- NOTE | ~2022-07-24 | XR_ITS ---
EXAMINATION: XR PELVIS XR HIP, RIGHT CLINICAL INFORMATION: Pain COMPARISON: 06/26/2022 TECHNIQUE: Frontal view of the pelvis with crosstable lateral view of the right hip. FINDINGS: There is a total right hip arthroplasty. The femoral head component articulates appropriately with the acetabular component. No periprosthetic lucency or fracture. The left hip is well aligned with mild narrowing of the joint space. The pelvic rim is intact. Phleboliths in the pelvis. Normal bowel gas pattern. XR/XR hip RT 1V IMPRESSION: Total right hip arthroplasty in typical positioning and alignment. Mild narrowing of the left hip joint space.
== END 2022-07-24 08:59 | disposition home or self-care (01) ==
LOC: HO.HOSX 08:58
PROVIDERS: Visit Provider Orthopaedic Surgery
DX: M25.551 Pain in right hip (principal)
CPT/HCPCS: 72170; 73501